=== PATIENT | male | born 2000 | race Caucasian/White ===

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

== ENCOUNTER 2018-02-16 22:44 | Emergency (ER) | payer SELFPAY ==
[~2018-02-16] VITALS: Ht 180.3 cm; Wt 112.5 kg
[2018-02-16 23:26] VITALS: Ht 180.3 cm; Wt 112.5 kg
[2018-02-17 02:53] VITALS: BP 126/67
== END 2018-02-17 02:53 | disposition home or self-care (01) ==
LOC: ED 22:44
DX: S81.812A Laceration without foreign body, left lower leg, initial encounter (principal); Z90.89 Acquired absence of other organs; W26.8XXA Contact with other sharp object(s), not elsewhere classified, initial encounter; Y93.89 Activity, other specified; Y92.89 Other specified places as the place of occurrence of the external cause; Y99.8 Other external cause status
CPT/HCPCS: 90715; J2001

== ENCOUNTER 2018-02-27 20:15 | Emergency (ER) | payer SELFPAY ==
[~2018-02-27] VITALS: Ht 180.3 cm; Wt 111.8 kg
[2018-02-27 20:27] VITALS: Ht 180.3 cm; Wt 111.8 kg
[2018-02-27 23:49] VITALS: BP 112/61
== END 2018-02-27 23:49 | disposition home or self-care (01) ==
LOC: ED 20:15
DX: L03.116 Cellulitis of left lower limb (principal); S81.812D Laceration without foreign body, left lower leg, subsequent encounter; Z90.89 Acquired absence of other organs; X58.XXXD Exposure to other specified factors, subsequent encounter